=== PATIENT | female | born 1990 | race Caucasian/White ===

== ENCOUNTER 2016-05-27 14:56 | Emergency (ER) | payer BC ==
[2016-05-27 16:53] VITALS: BP 116/70
== END 2016-05-27 16:59 | disposition left against medical advice (07) ==
LOC: ED 14:56
DX: H53.8 Other visual disturbances (principal); R20.0 Anesthesia of skin; Z53.21 Procedure and treatment not carried out due to patient leaving prior to being seen by health care provider
CPT/HCPCS: 99281